=== PATIENT | female | born 1995 | race Caucasian/White ===

== ENCOUNTER 2021-01-27 16:59 | Observation (INO) | payer BC, SELFPAY ==
[2021-01-27 17:23] VITALS: BP 107/63; PULSE 80
[2021-01-27 17:31] VITALS: BP 107/60; PULSE 80
[2021-01-27 17:40] VITALS: TEMP 36.6
[2021-01-27] MEDS: DEXTROSE 5%/LACTATED RINGERS 1,000 ML 100 ML IV CONT (17:59)
[2021-01-27] MEDS: ONDANSETRON INJ 4 MG/2 ML VIAL IV PUSH (17:59)
[2021-01-27] MEDS: FAMOTIDINE 20 MG/2 ML VIAL IV PUSH (17:59)
[2021-01-27 18:01] LABS: Basophils Percent Auto 0.3 % (0.2-1.2); Eosinophils Absolute Auto 0.1 K/mm3 (0-0.3); Eosinophils Percent Auto 0.8 % (0-4.4); Hematocrit 39.6 % (37.0-47.0); Hemoglobin 13.5 g/dL (12.0-15.0); Immature Granulocyte Absolute 0.07 K/mm3 (0.00-0.031); Immature Granulocyte Percent A 0.9 % (0-0.5); Lymphocytes Absolute Auto 1.86 K/mm3 (0.9-3.2); Lymphocytes Percent Auto 23.7 % (18.3-44.2); Mean Corpuscular HGB Conc 34.1 g/dl (32-36); Mean Corpuscular Hemoglobin 30.4 pg (26-34); Mean Corpuscular Volume 89.2 fl (80-100); Monocytes Absolute Auto 0.6 K/mm3 (0.1-0.6); Monocytes Percent Auto 7.1 % (2.6-8.5); Neutrophils Absolute Auto 5.3 K/mm3 (1.3-6.7); Neutrophils Percent Auto 67.2 % (45.5-73.1); Platelet Count Result 216 k/mm3 (150-375); Red Blood Count 4.44 M/mm3 (4.2-5.4); White Blood Count 7.9 K/mm3 (4.5-10.0)
[2021-01-27 18:06] VITALS: BMI 23.8
--- NOTE | 2021-01-27 18:10 | OBADM ---
This patient, Elina Le, admitted to the OB room OB Post 116 for observation. Patient/family oriented to hospital policies and general routines including ID bracelet, bed and alarms, visiting hours, pain management, procedures, bathroom and other care routines, personal items, smoking policy, room service/diet, and visiting hours. Patient/Family are encouraged to report perceived risks to care and to ask questions if they do not understand what they are told or what they should do.
[2021-01-27 18:18] LABS: Alanine Aminotransferase 10 U/L (4-35); Alkaline Phosphatase 59 U/L (38-126); Anion Gap 8 mmol/L (8-16); Aspartate Amino Transferase 17 U/L (14-36); Bilirubin,Total 1.1 mg/dL (0.2-1.3); Blood Urea Nitrogen 7 mg/dL (7-17); Calcium 9.4 mg/dL (8.4-10.2); Carbon Dioxide 23 mmol/L (22-30); Chloride 105 mmol/L (98-107); Estimated CRCL calculation 202 ml/min; Estimated Glomerular Filt Rate > 60; Glucose 83 mg/dL (65-110); Potassium 3.5 mmol/L (3.4-5.0); Sodium 136 mmol/L (137-145)
[2021-01-27 19:05] LABS: Add Urine Microscopic? YES; Appearance Urine Cloudy (Clear); Bacteria Urine Trace /hpf; Bilirubin Urine Negative (Negative); Blood Urine Negative (Negative); Color Urine Yellow (Yellow); Glucose Urine UA Negative (Negative); Ketones Urine 2+ mg/dL (Negative); Leukocyte Esterase Ur Negative LEU/UL (Negative); Mucus Urine Heavy /lpf; Nitrate Urine Negative (Negative); Protein Urine 1+ mg/dL (Negative); RBC Urine 0-2 /hpf (0-2); Specific Grav Ur 1.021 (1.001-1.035); Squamous Epithelial Cell Urine Moderate /hpf (Few); Urobilinogen Urine Negative mg/dL (<2.0); WBC Urine 0-3 /hpf
--- NOTE | 2021-01-27 19:45 | PC.NURSE ---
Pt states she is feeling better and able to have sips of water. Juliane Pak CNM called in for status, report given. discharge order received.
--- NOTE | 2021-02-01 07:20 | P.PNOB_ITS ---
OB - Triage/Final Diagnosis Visit Information Date of evaluation: 01/27/21 Reason for evaluation: threatened labor (N/V) and other Comments/Additional reasons for admission: I have assessed the risk for this patient, Elina Le, and determined that she would benefit from observation care. Evaluation Laboratory results: Laboratory Tests 01/27/21 01/27/21 01/27/21 17:53 17:53 17:53 WBC 7.9 RBC 4.44 Hgb 13.5 Hct 39.6 MCV 89.2 MCH 30.4 MCHC 34.1 RDW 21.0 H Plt Count 216 MPV 9.0 Immature Gran % (Auto) 0.9 H Neut % (Auto) 67.2 Lymph % (Auto) 23.7 [place] % (Auto) 7.1 Eos % (Auto) 0.8 Baso % (Auto) 0.3 Lymph # (Auto) 1.86 [place] # (Auto) 0.6 Eos # (Auto) 0.1 Baso # (Auto) 0.0 Abs Immat Gran (auto) 0.07 H Absolute Neuts (auto) 5.3 Absolute Nucleated RBC 0.0 Nucleated RBC % 0.0 Sodium 136 L Potassium 3.5 Chloride 105 Carbon Dioxide 23 Anion Gap 8 BUN 7 Creatinine 0.30 L Estim Creat Clear Calc 202 Estimated GFR > 60 Glucose 83 Calcium 9.4 Total Bilirubin 1.1 AST 17 ALT 10 Alkaline Phosphatase 59 Total Protein 6.0 L Albumin 4.0 Urine Color Yellow Urine Appearance Cloudy H Urine pH 5.0 Ur Specific [employer] 1.021 Urine Protein 1+ H Urine Glucose (UA) Negative Urine Ketones 2+ H Ur Blood (Man) Negative Urine Nitrate Negative Urine Bilirubin Negative Urine Urobilinogen Negative Leukocyte Esterase Rfl Negative Urine RBC 0-2 Urine WBC 0-3 Ur Squamous Epith Cells Moderate H Urine Bacteria Trace Hyaline Casts 1-2 Urine Mucus Heavy H
== END 2021-01-27 20:00 | disposition home or self-care (01) ==
PROVIDERS: Advanced Practice Midwife; Admitting Provider Obstetrics & Gynecology; PCP Family Medicine; Visit Provider Obstetrics & Gynecology
DX: O47.03 False labor before 37 completed weeks of gestation, third trimester (principal); Z3A.25 25 weeks gestation of pregnancy
CPT/HCPCS: 36415; 80053; 81001; 85025; 96374; 96375; G0378; G0379; J2405; J7121

== ENCOUNTER 2021-03-26 20:29 | Observation (INO) | payer BC, SELFPAY ==
--- NOTE | 2021-03-26 21:00 | PC.NURSE ---
pt reports having contractions on and off today some about 10 min apart. Pt reports having maternity pictures yesterday and not drinking as much fluid as she normally does today. Pt recovering from Covid, positive 1/3 per pt.
[2021-03-26 21:02] VITALS: BP 119/69; PULSE 80; TEMP 36.2
[2021-03-26 21:11] VITALS: BMI 24.9
[2021-03-26 21:31] LABS: Add Urine Microscopic? YES; Appearance Urine Cloudy (Clear); Bilirubin Urine Negative (Negative); Blood Urine Negative (Negative); Color Urine Yellow (Yellow); Glucose Urine UA 1+ mg/dL (Negative); Ketones Urine Negative (Negative); Leukocyte Esterase Ur 2+ LEU/UL (NEGATIVE); Mucus Urine Rare /lpf; Nitrate Urine Negative (Negative); Protein Urine Negative (Negative); RBC Urine 0-2 /hpf (0-2); Specific Grav Ur 1.014 (1.001-1.035); Squamous Epithelial Cell Urine Many /hpf (Few); Urobilinogen Urine Negative mg/dL (<2.0)
[2021-03-26] MEDS: NIFEdipine 30 MG TAB.ER.24 PO (22:10)
[2021-03-26 22:17] VITALS: BP 121/70; PULSE 72
[2021-03-26 22:30] VITALS: BP 111/72; PULSE 79
[2021-03-26 22:45] VITALS: BP 112/68; PULSE 78
[2021-03-26 23:00] VITALS: BP 114/77; PULSE 77
[2021-03-26 23:15] VITALS: BP 113/71; PULSE 78
--- NOTE | 2021-03-26 23:15 | PC.NURSE ---
Juliane Pak updated on pt. Pt reports no contractions since getting up to the bathroom and taking the Procardia. Pt having some cramping but denies pain. strip review with Juliane Pak and cervical exam reported. Order received for pt to discharge and schedule an appt this week with the office. Order received for pt to have script for Procardia 30 XL daily for 10 days.
--- NOTE | 2021-03-29 07:26 | PM.OBTRLD ---
OB - Triage/Final Diagnosis Visit Information Date of evaluation: 03/26/21 Reason for evaluation: threatened labor Comments/Additional reasons for admission: I have assessed the risk for this patient, Elina Le, and determined that she would benefit from observation care. Evaluation Laboratory results: Laboratory Tests 03/26/21 03/26/21 21:00 21:00 Urine Color Cancelled Yellow Urine Appearance Cancelled Cloudy H Urine pH Cancelled 5.0 Ur Specific [place] Cancelled 1.014 Urine Protein Cancelled Negative Urine Glucose (UA) Cancelled 1+ H Urine Ketones Cancelled Negative Ur Blood (Man) Cancelled Negative Urine Nitrate Cancelled Negative Urine Bilirubin Cancelled Negative Urine Urobilinogen Cancelled Negative Ur Leukocyte Esterase 2+ H Leukocyte Esterase Rfl Cancelled Urine RBC Cancelled 0-2 Urine WBC Cancelled 10-15 H Urine WBC Clumps Cancelled Ur Squamous Epith Cells Cancelled Many H Ur Transition Epith Cell Cancelled Ur Renal Epithelial Cell Cancelled [place] Biurate Crystals Cancelled Calcium Carbonate Cryst Cancelled Calcium Phosphate Cryst Cancelled Calcium Oxalate Crystal Cancelled Leucine Crystals Cancelled Cystine Crystals Cancelled Uric Acid Crystals Cancelled Triple Phos Crystals Cancelled Sulfonamide Crystals Cancelled Cholesterol Crystals Cancelled [place] Crystals Cancelled Tyrosine Crystals Cancelled Hippuric Acid Crystals Cancelled Other Crystals Cancelled Amorphous Sediment Cancelled Other Sediment Cancelled Urine Bacteria Cancelled Cellular Casts Cancelled Epithelial Casts Cancelled Fatty Casts Cancelled Hyaline Casts Cancelled Granular Casts Cancelled Waxy Casts Cancelled RBC Casts Cancelled WBC Casts Cancelled Urine Starch Cancelled Urine Mucus Cancelled Rare Urine Trichomonas Cancelled Urine Yeast (Budding) Cancelled Ur Oval Fat Bodies Cancelled
== END 2021-03-26 23:37 | disposition home or self-care (01) ==
PROVIDERS: Advanced Practice Midwife; Admitting Provider Obstetrics & Gynecology; PCP Family Medicine; Visit Provider Obstetrics & Gynecology
DX: O47.03 False labor before 37 completed weeks of gestation, third trimester (principal); Z3A.33 33 weeks gestation of pregnancy
CPT/HCPCS: 81001; 87086; 87088; A9270; G0378; G0379

== ENCOUNTER 2021-03-30 17:23 | Observation (INO) | payer BC, SELFPAY ==
[2021-03-30 18:24] VITALS: BP 114/72; PULSE 78
--- NOTE | 2021-04-13 21:35 | PM.OBTRLD ---
OB - Triage/Final Diagnosis Visit Information Comments/Additional reasons for admission: I have assessed the risk for this patient, Elina Le, and determined that she would benefit from observation care. Final Diagnosis (1) False labor: Code(s): O47.9 - False labor, unspecified Status: Acute
== END 2021-03-30 19:00 | disposition home or self-care (01) ==
PROVIDERS: Admitting Provider Obstetrics & Gynecology; PCP Family Medicine; Visit Provider Obstetrics & Gynecology
DX: O47.03 False labor before 37 completed weeks of gestation, third trimester (principal); Z3A.34 34 weeks gestation of pregnancy
CPT/HCPCS: G0378; G0379

== ENCOUNTER 2021-04-12 21:27 | Observation (INO) | payer BC, SELFPAY ==
[2021-04-12 21:45] VITALS: BP 116/72; PULSE 91
[2021-04-12 22:00] VITALS: BP 111/74; PULSE 81
[2021-04-12 22:23] VITALS: TEMP 37.1
--- NOTE | 2021-04-16 15:53 | PM.OBTRLD ---
OB - Triage/Final Diagnosis Visit Information Date of evaluation: 04/13/21 Reason for evaluation: threatened labor Comments/Additional reasons for admission: I have assessed the risk for this patient, Elina Joyce Le, and determined that she would benefit from observation care.
== END 2021-04-12 22:15 | disposition home or self-care (01) ==
PROVIDERS: Admitting Provider Obstetrics & Gynecology; PCP Family Medicine; Visit Provider Obstetrics & Gynecology
DX: O47.03 False labor before 37 completed weeks of gestation, third trimester (principal); Z3A.36 36 weeks gestation of pregnancy
CPT/HCPCS: G0378; G0379

== ENCOUNTER 2021-04-21 04:10 | Inpatient (IN) | payer BC, SELFPAY ==
[2021-04-21] VITALS (142 sets, daily range): BP systolic 75–131; BP diastolic 34–82; PULSE 65–193; RESP 16–20; TEMP 36.5–37.7; O2SAT 95–100; BMI 24.9
--- NOTE | 2021-04-21 04:47 | LDADM ---
This patient, Elina Le, was admitted to Labor/Delivery/Recovery 105 on 04/21/21 at 04:10. Plans for labor, pain management and were discussed with patient. Patient/family oriented to hospital policies and general routines including ID bracelet, bed and alarms, visiting hours, pain management, procedures, bathroom and other care routines, personal items, smoking policy, room service/diet and guest tray routines, security routines, and visiting hours. Patient/Family are encouraged to report perceived risks to care and to ask questions if they do not understand what they are told or what they should do. See OBIX for further documentation.
[2021-04-21 04:59] LABS: Basophils Percent Auto 0.3 % (0.2-1.2); Eosinophils Absolute Auto 0.2 K/mm3 (0-0.3); Eosinophils Percent Auto 3.2 % (0-4.4); Hematocrit 36.6 % (37.0-47.0); Immature Granulocyte Absolute 0.06 K/mm3 (0.00-0.031); Immature Granulocyte Percent A 0.8 % (0-0.5); Lymphocytes Percent Auto 23.7 % (18.3-44.2); Mean Corpuscular HGB Conc 32.8 g/dl (32-36); Mean Corpuscular Hemoglobin 29.9 pg (26-34); Mean Corpuscular Volume 91.3 fl (80-100); Mean Platelet Volume 9.5 fl (7.4-10.4); Monocytes Absolute Auto 0.6 K/mm3 (0.1-0.6); Monocytes Percent Auto 8.9 % (2.6-8.5); Neutrophils Absolute Auto 4.5 K/mm3 (1.3-6.7); Neutrophils Percent Auto 63.1 % (45.5-73.1); Platelet Count Result 190 k/mm3 (150-375); Red Blood Count 4.01 M/mm3 (4.2-5.4); Red Cell Distribution Width 14.1 % (11.5-14.5); White Blood Count 7.2 K/mm3 (4.5-10.0)
--- NOTE | 2021-04-21 05:55 | WPDANESEPP ---
Anes - Eval Pre Procedure Procedure: labor epidural Date/Time: 04/21/21 05:55 Surgeon: joaquina Pre Op Diagnosis: Leaking Patient Data Age: 26 Gender: F Height: 1.68 m Weight: 70 kg Last Vital Signs Temp 36.6 C 04/21/21 04:30 Pulse 93 04/21/21 05:30 Resp 18 04/21/21 04:30 BP 108/76 04/21/21 05:30 Allergies Allergy/AdvReac Type Severity Reaction Status Date / Time Iodinated Contrast Media Allergy Mild Vomiting Verified 04/17/21 08:29 latex Allergy Unknown Itching Verified 04/17/21 08:29 Latex, Natural Rubber Allergy Itching Verified 04/17/21 08:29 Contrast Media Allergy Unknown Nausea and Uncoded 04/17/21 08:29 Vomiting Home Medications Medication Instructions Recorded Confirmed Type Vitamin 1 tablet PO DAILY 01/31/19 04/21/21 History omeprazole magnesium [Prilosec OTC] 20 mg PO DAILY 01/31/19 04/21/21 History vedolizumab 300 mg intravenous 300 mg IV [id number] 01/28/20 04/12/21 History solution sertraline [Zoloft] 50 mg PO HS 11/22/20 04/21/21 History aspirin 81 mg PO DAILY 03/26/21 04/21/21 History budesonide 9 mg PO DAILY 03/26/21 04/21/21 History Laboratory Tests 04/21/21 04/21/21 04/21/21 04:34 04:34 04:34 WBC 7.2 K/mm3 K/mm3 (4.5-10.0) RBC 4.01 M/mm3 L M/mm3 (4.2-5.4) Hgb 12.0 g/dL g/dL (12.0-15.0) Hct 36.6 % L % (37.0-47.0) MCV 91.3 fl fl (80-100) MCH 29.9 pg pg (26-34) MCHC 32.8 g/dl g/dl (32-36) RDW 14.1 % % (11.5-14.5) Plt Count 190 k/mm3 k/mm3 (150-375) MPV 9.5 fl fl (7.4-10.4) Immature Gran % (Auto) 0.8 % H % (0-0.5) Neut % (Auto) 63.1 % % (45.5-73.1) Lymph % (Auto) 23.7 % % (18.3-44.2) [place] % (Auto) 8.9 % H % (2.6-8.5) Eos % (Auto) 3.2 % % (0-4.4) Baso % (Auto) 0.3 % % (0.2-1.2) Lymph # (Auto) 1.70 K/mm3 K/mm3 (0.9-3.2) [place] # (Auto) 0.6 K/mm3 K/mm3 (0.1-0.6) Eos # (Auto) 0.2 K/mm3 K/mm3 (0-0.3) Baso # (Auto) 0.0 K/mm3 K/mm3 (0.0-0.1) Abs Immat Gran (auto) 0.06 K/mm3 H K/mm3 (0.00-0.031) Absolute Neuts (auto) 4.5 K/mm3 K/mm3 (1.3-6.7) Absolute Nucleated RBC 0.0 K/mm3 K/mm3 (0.0-0.012) Nucleated RBC % 0.0 % % (0.0-0.2) RPR Pending Blood Type O Positive Antibody Screen Pending Patient hx anesthesia problems: none Family hx anesthesia problems: none Results Review: All pre-operative results and documents have been reviewed as part of the pre-operative evaluation. [facility] Past Medical History Medical History (Updated 04/17/21 @ 08:29 by Cuca Rodgers) Anemia Anemia Anxiety Chronic anemia hemoglobin 10.8, hematocrit 35.1 on 05/26/2020 Chronic anxiety Chronic GERD Depression Hypothyroid Seasonal allergic rhinitis Severe depression Ulcerative colitis العلي colitis on colonoscopy 06/06/2020 Ulcerative colitis Vitamin D insufficiency (~05/26/20) level low at 23 on 05/26/2020 Family History Family History (System 04/17/21 @ 08:29 by Cuca Rodgers) Mother Anxiety Depression Father , overdose Bipolar 1 disorder Drug addiction Grandparent Bipolar 1 disorder Grandparent Diabetes mellitus COPD (chronic obstructive pulmonary disease) Mother Anemia Grandparent Heart disease Diabetes mellitus Social History Social History (System 04/17/21 @ 08:29 by Cuca Rodgers) Smoking status: Never smoker Second hand tobacco smoke exposure: No Alcohol intake: never Substance use: never Spiritual care concerns: No Exam Day of Procedure 04/21/21 05:55
[2021-04-21 06:08] LABS: Rapid Plasma Reagin Non-Reactive (NonReactive)
--- NOTE | 2021-04-21 07:13 | WPDOBADMIT ---
Obstetrics - Admit Note Admission Note: record reviewed. No pertinent additions to the history and/or any subsequent changes in the physical findings that are not consistent with the expected course of the were found. Pt admitted after SROM at home, anticipate vaginal delivery Additions to the history and/or subsequent changes in the physical findings follow. None.
[2021-04-21] MEDS: OXYTOCIN 30 UNITS/NS 500 ML 30 UNITS/500 ML BAG IV CONT (07:27)
[2021-04-21] MEDS: LACTATED RINGERS 1,000 ML 125 ML IV CONT (07:27)
[2021-04-21] MEDS: LACTATED RINGERS 1,000 ML 999 ML IV CONT ×3 (09:51→13:41)
--- NOTE | 2021-04-21 15:43 | P.PCNOB_ITS ---
OB - Delivery Note Procedure Delivery date: 04/21/21 Procedure: vaginal delivery Delivery augmentation: Pitocin Delivery monitor: External FHT and External Uterine Route of delivery: Laceration Description: None Specimen: Yes Quantitative Blood Loss (ml): 80 Anesthesia type: Epidural Disposition: floor [place] Baby Date of : 04/21/21 Time of : 15:27 Weeks of gestation at delivery: 37 gender: Male Weight (pounds): 7 Weight (ounces): 8 presentation: vertex position: Left Occiput Anterior Cord Vessel Description: 3 Vessels, Clamped/Cut and Delayed Cord Clamping score one minute: 9 score five minutes: 9 Narrative: mother and baby skin to skin in stable condition
--- NOTE | 2021-04-21 18:15 | OBPPTRN ---
Patient transferred to post room #284 via W/C. Support person present. Oriented to unit, room, information board, rooming in, admission packet and security measures. Patient verbalizes understanding.
[2021-04-21] MEDS: ACETAMINOPHEN 325 MG TABLET 650 MG PO ×2 (18:27→23:36)
[2021-04-21] MEDS: SERTRALINE HCL 50 MG TABLET PO (20:48)
[2021-04-22 05:00] VITALS: BP 110/72; PULSE 89; RESP 18; TEMP 36.9
[2021-04-22] MEDS: ACETAMINOPHEN 325 MG TABLET 650 MG PO ×2 (05:07→13:22)
[2021-04-22 05:20] LABS: Hematocrit 31.3 % (37.0-47.0); Hemoglobin 10.1 g/dL (12.0-15.0)
--- NOTE | 2021-04-22 08:03 | PM.OBPNVD ---
OB - PN: Subj Subjective Date/time seen: 04/22/21 08:03 Patient comments: no complaints, pain well controlled, incisional pain, tolerating diet and flatus present OB - PN: Obj Data Labs CBC & Chem 7: 04/22/21 05:07 Labs: Laboratory Results - last 24 hr 04/22/21 05:07 Hgb 10.1 L Hct 31.3 L OB - PN A/P Plan day: 1 Plan: routine care Comments: No problems, routine care Time Spent With Patient Time: Total time spent is greater than 50% in coordination of care (as documented) at patient's floor/unit and/or counseling patient: Exam Const: General: comfortable, no acute distress and alert Resp: Effort & Inspection: normal respiratory effort Auscultation: no crackles, no rales and no rhonchi Cardio: Rate: regular rate Heart sounds: no click, no murmurs and no rubs GI: Inspection: non-distended GI Palp: No Tenderness to palpation present (GI) Auscultation: normal bowel sounds Other: Incision - CDI Extrem: General: normal to inspection, no pedal edema and no calf tenderness
--- NOTE | 2021-04-22 08:06 | WPDANLDPN2 ---
Anes-Prog Note L&D Date/Time: 04/22/21 08:06 Comfortable throughout: labor and delivery Neuraxial method: epidural Epidural/Spinal procedure site: clean & non-tender Neuro status: Neuro function grossly intact. Cardiovascular status: normal Respiratory status: normal Airway patency: baseline Mental status: baseline Post-Op hydration status: normal Vital Signs: Last Vital Signs Temp 36.9 C 04/22/21 05:00 Pulse 89 04/22/21 05:00 Resp 18 04/22/21 05:00 BP 110/72 04/22/21 05:00 Pulse Ox 97 04/21/21 15:25 Pain score (VAS): 0 I/O: Intake & Output 04/21/21 04/22/21 04/22/21 23:59 07:59 15:59 Output Total 780 Balance -780 Post-procedural complaints: none Patient feedback: Patient satisfied with anesthetic care.
[2021-04-22 10:00] VITALS: BP 114/74; PULSE 82; RESP 16; TEMP 36.7
[2021-04-22] MEDS: BUDESONIDE 3 MG CAP.SR.24H 9 MG PO (10:04)
[2021-04-22] MEDS: MULTIVIT/MIN/PREN/FOL AC/IRON TABLET 1 TAB PO (10:04)
[2021-04-22 13:15] VITALS: BP 114/78; PULSE 81; RESP 16; TEMP 36.8
--- NOTE | 2021-04-22 17:00 | PC.NURSE ---
Patient instructed on viewing the discharge video Mother & Baby Care, The First Two Weeks . Patient was given the opportunity and encouraged to ask questions. Patient verbalized understanding of information shared and has been given the mother/baby guide for home reference.
[2021-04-24 10:56] VITALS: BP 104/67; PULSE 96; RESP 20; TEMP 37.5; O2SAT 100
--- NOTE | 2021-04-26 06:25 | PM.OBDSVD ---
DS: Admitting Diagnosis Discharge Date 04/22/21 Admitting Diagnosis srom OB - DS: Summary OB Procedures : None OB Procedures Intrapartum: Spontaneous Vag Delivery OB Procedures: : None Time Spent with Patient Time attestation: Total time spent providing and/or coordinating discharge services: DS: Data Data Completed and Pending Pending studies at discharge: Pending at discharge 04/21/21 15:31 Surgical [PTH] Routine Discharge Plan Discharge Consulting providers: Sushma Pak Discharging Clinician: Reena Brito Patient Disposition: Home, Self-Care Activity: pelvic rest Diet: regular Discharge Instructions: Education: Mom and Baby Guide and Preeclampsia Handout Given to: Mother Follow-Up: Call your delivering provider's office for an appointment to be seen in: 4 Weeks Mom and baby should come to the [facility] for the follow-up appointment. Appointment Date/Time: April 24, 2021 at 11:00 am What to expect at your follow-up visit: Physical Assessment Call [phone] if you are unable to keep your appointment time. BREAST CARE: * Wear a snug supportive bra. * For engorgement discomfort: Breast Feeding: * Apply warm moist washcloths * Express milk as needed to relieve engorgement * Wear loose clothing * For sore nipples: * Identify correct latch-on * Apply warm moist washcloths before and after nursing * Air dry nipples after nursing * May apply Lansinoh cream to nipples EPISIOTOMY/PERINEAL CARE: * Until bleeding stops, use your meera bottle after urinating * Change your pad frequently throughout the day * You may take sitz baths several times a day (fill your bathtub with warm water and soak for 20 minutes.) Do NOT bathe in the water * No tub baths until seen by your physician - You may shower ACTIVITY: * Rest as much as possible. * Do not exercise or lift anything heavier than your baby (such as laundry or other children.) * Avoid stairs or driving as much as possible. * Do not put anything into the vagina. No douching, tampons, or sexual activity until seen by physician. NOTIFY PHYSICIAN IF YOU HAVE ANY QUESTIONS OR IF ANY OF THE FOLLOWING SYMPTOMS OCCUR: * If your vaginal bleeding becomes foul smelling. * If your vaginal bleeding becomes more heavy than a period or if your bleeding changes from pink to bright red. However, you may pass an occasional walnut-sized clot once or twice for the first week . * If you experience a sharp, shooting pain in you calves. * If you discover a hard, reddened area on your breast or if you experience flu-like symptoms. DIET: * Eat regular, well-balanced meals. * Drink plenty of fluids daily. If , drink to thirst. Stand Alone Forms: General Discharge Information Follow-up/Referrals: Reena Brito MD [Physician] - 4 Weeks Discharge Medications: Continued sertraline [Zoloft] 50 mg Tablet 50 mg PO HS RF: 0 Entyvio 300 mg recon soln 300 mg IV [id number] RF: 0 Vitamin 27 mg iron- 0.8 mg Tablet 1 tablet PO DAILY RF: 0 omeprazole magnesium [Prilosec OTC] 20 mg Tablet,Delayed Release (Dr/Ec) 20 mg PO DAILY RF: 0 budesonide 9 mg tablet,delayed and ext.release 9 mg PO DAILY RF: 0 Discontinued aspirin 81 mg Capsule 81 mg PO DAILY RF: 0 Date of admission: 04/21/21 04:10 Primary Care Provider: Andrés Broussard Admitting Provider: Reena Brito Attending physician on admission: Reena Brito Condition: Stable
== END 2021-04-22 17:55 | disposition home or self-care (01) | DRG 807 ==
LOC: ANHLDR 04:40 → ANHOB2 18:23
PROVIDERS: Advanced Practice Midwife; Admitting Provider Obstetrics & Gynecology; PCP Family Medicine; Visit Provider Obstetrics & Gynecology
DX: O76 Abnormality in fetal heart rate and rhythm complicating labor and delivery (principal); Z37.0 Single live birth; Z3A.37 37 weeks gestation of pregnancy
CPT/HCPCS: 36415; 84112; 85014; 85018; 85025; 86592; 86850; 86900; 86901; 88307; A9270; J2590; J2795; J7120

== ENCOUNTER 2022-01-12 16:09 | Emergency (ER) | payer BC, SELFPAY ==
[2022-01-12 16:13] VITALS: BP 99/67; PULSE 109; RESP 16; TEMP 37.6; O2SAT 99
--- NOTE | 2022-01-12 16:41 | ED.URI ---
HPI - URI/Sore Throat General Chief Complaint: Upper Respiratory Infection Stated Complaint: cough fever chest pain sore throat Time Seen by Provider: 01/12/22 16:41 Source: patient, RN notes reviewed and old records reviewed Mode of arrival: ambulatory Limitations: no limitations History of Present Illness HPI Narrative: 27-year-old female presents to the [facility] with complaints of cough, fever, chest discomfort with coughing and sore throat. Started 12 hours ago. Child is positive for flu A This morning. Was seen by collar tacker. Wall Insulation Sprayer recommended even though patient is breast-feeding that she take Tamiflu. Onset (ago): hour(s) (12) Related Data Home Medications Medication Instructions Recorded Confirmed sertraline 100 mg tablet 100 mg PO DAILY 01/12/22 01/12/22 Allergies Allergy/AdvReac Type Severity Reaction Status Date / Time Iodinated Contrast Media Allergy Mild Vomiting Verified 01/12/22 16:39 latex Allergy Unknown Itching Verified 01/12/22 16:39 Latex, Natural Rubber Allergy Itching Verified 01/12/22 16:39 Contrast Media Allergy Unknown Nausea and Uncoded 01/12/22 16:39 Vomiting Review of Systems Review of Systems: All systems reviewed & are unremarkable except as noted in HPI and below Constitutional: Constitutional: Reports as per HPI, Reports chills and Reports fever(s) Eyes: Eyes: Reports no additional eye complaints ENT: Reports system reviewed and no additional complaints, except as documented Cardiovascular: Cardiovascular: Reports no additional cardiovascular complaints Respiratory: Respiratory: Reports as per HPI and Reports cough Gastrointestinal: Gastrointestinal: Reports no additional gastrointestinal complaints Musculoskeletal: Musculoskeletal: Reports no additional musculoskeletal complaints Integumentary/Breasts: Skin/Breast: Reports system reviewed and no additional complaints, except as docu Neurologic: Reports system reviewed and no additional complaints, except as documented Psychiatric: Psychiatric: Reports no additional psychiatric complaints Allergic/Immunologic: Allergic/Immunologic: Reports no additional allergic/immunologic complaints [facility] Past Medical History Medical History Anemia Anemia Anxiety Chronic anemia hemoglobin 10.8, hematocrit 35.1 on 05/26/2020 Chronic anxiety Chronic GERD Depression Hypothyroid Seasonal allergic rhinitis Severe depression Ulcerative colitis العلي colitis on colonoscopy 06/06/2020 Ulcerative colitis Vitamin D insufficiency (~05/26/20) level low at 23 on 05/26/2020 Family History Family History Mother Anxiety Depression Father , overdose Bipolar 1 disorder Drug addiction Grandparent Bipolar 1 disorder Grandparent Diabetes mellitus COPD (chronic obstructive pulmonary disease) Mother Anemia Grandparent Heart disease Diabetes mellitus Social History Social History Smoking status: Never smoker Second hand tobacco smoke exposure: No Alcohol intake: never Substance use: never Spiritual care concerns: No Comments At the time of my signature, I reviewed and agree with the nursing past medical, surgical, social, and family history. There is no relevant family history pertinent to the patient complaint. Exam Const: General: healthy appearing, no acute distress, alert and well nourished Nutritional Appearance: well nourished Orientation/consciousness: patient oriented x3 Limitations: no limitations HENMT: Head: normal to inspection Ears: external ears normal, TM's normal bilaterally and EAC's normal Face/Nose/Sinus: Normal external nose present and Normal nares present Face and sinus: normal facial exam Mouth: Yes Normal oral and palatal mucosa present, Yes lip normal and Yes moist mu
== END 2022-01-12 16:55 | disposition home or self-care (01) ==
PROVIDERS: Emergency Provider Nurse Practitioner; PCP Family Medicine
DX: B34.9 Viral infection, unspecified (principal); K21.9 Gastro-esophageal reflux disease without esophagitis; E03.9 Hypothyroidism, unspecified; F41.9 Anxiety disorder, unspecified; F32.A Depression, unspecified
CPT/HCPCS: 87081; 87804; 87880; 99213; G0463

== ENCOUNTER 2022-01-31 09:28 | Emergency (ER) | payer BC, SELFPAY ==
[2022-01-31 09:48] VITALS: BP 101/45; PULSE 84; RESP 16; TEMP 37.1; O2SAT 98
--- NOTE | 2022-01-31 11:58 | ED.EYEPROB ---
HPI - Eye Problem General Chief complaint: Eye Problems Stated complaint: Eye Problem Time Seen by Provider: 01/31/22 11:30 Source: patient, RN notes reviewed and old records reviewed Mode of arrival: ambulatory Limitations: no limitations History of Present Illness HPI Narrative: 27-year-old female who presents to [facility] with complaints of 1 day symptoms of redness irritation to her left eye which is itchy. Patient states she has had known exposure to pinkeye from her brother who she had dinner with Saturday, reports he woke yesterday with pinkeye. Patient states she did have influenza 2 weeks ago. Patient has not tried any [id number] eye drops denies any change in vision.Left eye was not matted shut this morning but did have some crusting along eyelid. MD chief complaint: eye redness Onset (ago): hour(s) (This morning) Severity scale (1-10): 2 Treatments Prior to Arrival: none Related Data Home Medications Medication Instructions Recorded Confirmed sertraline 100 mg tablet 100 mg PO DAILY 01/12/22 01/31/22 sertraline 50 mg tablet 50 mg PO DAILY 01/31/22 01/31/22 Allergies Allergy/AdvReac Type Severity Reaction Status Date / Time Iodinated Contrast Media Allergy Mild Vomiting Verified 01/31/22 11:07 latex Allergy Unknown Itching Verified 01/31/22 11:07 Latex, Natural Rubber Allergy Itching Verified 01/31/22 11:07 Contrast Media Allergy Unknown Nausea and Uncoded 01/31/22 11:07 Vomiting Review of Systems Review of Systems: CONSTITUTIONAL: Denies fever, chills, or sweats. EYES: Denies visual changes. Reports redness,, irritation, discharge left eye with itching ENT: Denies rhinorrhea, congestion, sore throat, or otalgia. CARDIOVASCULAR: Denies chest pain, palpitations, or edema. RESPIRATORY: Denies cough or dyspnea. SKIN: Denies rash or itching. NEUROLOGIC: Denies headache All systems reviewed & are unremarkable except as noted in HPI and below PMFSH Past Medical History Medical History Anemia Anemia Anxiety Chronic anemia hemoglobin 10.8, hematocrit 35.1 on 05/26/2020 Chronic anxiety Chronic GERD Depression Hypothyroid Seasonal allergic rhinitis Severe depression Ulcerative colitis العلي colitis on colonoscopy 06/06/2020 Ulcerative colitis Vitamin D insufficiency (~05/26/20) level low at 23 on 05/26/2020 Family History Family History Mother Anxiety Depression Father , overdose Bipolar 1 disorder Drug addiction Grandparent Bipolar 1 disorder Grandparent Diabetes mellitus COPD (chronic obstructive pulmonary disease) Mother Anemia Grandparent Heart disease Diabetes mellitus Social History Social History Smoking status: Never smoker Second hand tobacco smoke exposure: No Alcohol intake: never Substance use: never Spiritual care concerns: No Comments At time of signature, agree with nursing past medical, surgical, social and family history. There is no relevant family history pertinent to the presenting complaint Exam Narrative: GENERAL: Well-appearing, well-nourished, and in no acute distress. HEAD: Normocephalic, atraumatic. EYES: PERRLA and EOMI. Upper and lower eyelids unremarkable. No periorbital cellulitis noted. Sclera and conjunctivae injected left eye.itchy with no sharp pain.visual acuity 20/25 bilateral eyes with glasses ENT: Nares clear, no rhinorrhea or epistaxis. Mucous membranes moist. NECK: Supple.no lymphadenopathy CHEST: Clear to auscultation. No respiratory distress.SAO2 98% on room air HEART: Regular rate and rhythm. No murmur heard. Normal peripheral pulses. SKIN: Warm, dry, no rash. NEURO: No focal deficits. Alert and oriented x3. Course Course Emergency Course: Patient is aware of diagnosis, understands and agrees to treatment plan.
== END 2022-01-31 12:20 | disposition home or self-care (01) ==
PROVIDERS: Emergency Provider Registered Nurse; PCP Family Medicine
DX: H10.9 Unspecified conjunctivitis (principal); E03.9 Hypothyroidism, unspecified; F32.A Depression, unspecified; F41.9 Anxiety disorder, unspecified
CPT/HCPCS: 99213; G0463